=== PATIENT | male | born 1975 | race Caucasian/White ===

== ENCOUNTER 2016-07-05 02:11 | Emergency (ER) | payer MEDICARE, OTHER ==
[~2016-07-05] VITALS: Ht 167.6 cm; Wt 107.5 kg
[~2016-07-05 02:11] MED LIST: ALOE1CAP PO; GEODON; LITHIUM; PRED-219 PO; TRAZ-56 PO; [UNRECOGNIZED DRUG - CODE] SQ
--- OUTSIDE RECORDS SUMMARY | 2016-07-05 02:15 | XMS REPORT | Referral Summary ---
Author Author [facility] Organization [facility] Address Unknown Phone Unavailable Care Team Providers Care Nozzleman Name Role Phone Cait Burgess Primary Care Physician [phone] Encounter Date(s): 12/09/14 - 12/09/14 [facility] [address] [place], [place] [address] Discharge Diagnosis: Rheumatoid arthritis Discharge Diagnosis: Fatigue Discharge Diagnosis: High risk medication use Discharge Disposition: 01-Home or Self Care Attending Physician: Christen Sotomayor MD Admitting Physician: Christen Sotomayor MD Vital Signs Most recent to 1 oldest [Reference Range]: Temperature Oral 36.4 degC [35.8-37.3 degC] (12/09/14 3:40 PM) Peripheral Pulse 79 bpm Rate [60-100 bpm] (12/09/14 3:40 PM) Blood Pressure 117/70 mmHg [90-140/60-90 mmHg] (12/09/14 3:40 PM) Problem List Condition Effective Dates Status Health Status Informant Chronic bipolar Active disorder(Confirmed) Obesity(Confirmed) Active patient Rheumatoid Active arthritis(Confirmed) Allergies, Adverse Reactions, Alerts Substance Reaction Severity Status cephalexin Rash Mild Active inFLIXimab hives, headache, dyspnea Severe Active sulindac Hives Mild Active Medications fenofibrate 43 mg oral capsule 1 caps, Oral, Daily, 0 Refill(s) Start Date: 03/09/14 Status: Ordered Geodon 40 mg oral capsule 1 caps, Oral, Bedtime (once a day), 0 Refill(s) Start Date: 03/09/14 Status: Ordered Kineret 100 mg/0.67 mL subcutaneous solution 100 mg, SubCutaneous, Daily, # 90 syringes, 1 Refill(s), [place] [facility] [facility] [place] 100 mg SubCutaneous Daily Start Date: 12/09/14 Status: Ordered lisinopril 20 mg oral tablet 1 tabs, Oral, Daily, 0 Refill(s) Start Date: 03/09/14 Status: Ordered lithium carbonate 300 mg, Oral, Daily, 3 tabs daily, 0 Refill(s) Start Date: 03/09/14 Status: Ordered meloxicam 15 mg oral tablet 1 tabs, Oral, Daily, # 30 tabs, 0 Refill(s), Pharmacy: [facility], 1 tabs Oral Daily Start Date: 03/09/14 Status: Ordered Probiotic Formula 1 caps, Oral, BID, 0 Refill(s) Start Date: 03/09/14 Status: Ordered Tylenol Extra Strength 1,000 mg, Oral, q4hr, as needed for pain, 1-2 tabs, 0 Refill(s) Start Date: 03/09/14 Status: Ordered Tylenol PM 1 tabs, Oral, Bedtime (once a day), OTC, 0 Refill(s) Start Date: 12/09/14 Status: Ordered Results No data available for this section Immunizations No data available for this section Procedures Procedure Date Related Diagnosis Body Site Hernia repair 2012 Tonsillectomy Social History Social History Type Response Smoking Status Former smoker; Type: Cigarettes Assessment and Plan Extracted from: Title: Ambulatory Patient Education Author: Christen Sotomayor MD Date: Home Health Care Immunosuppression Immunosuppression is the use of medicine to lower your body's immune response. Your immune response is your body's natural reaction to defend against something new or unknown that enters your body, such as viruses and bacteria. WHY AM I RECEIVING IMMUNOSUPPRESSION? You may be receiving immunosuppression to hold back your body's immune response for one of the following reasons: As treatment for an autoimmune disorder. These disorders cause your body to use the immune response to attack itself. To prevent your body from rejecting a transplant of cells, tissues, or organs that you have received from a donor. When you receive a transplant from a donor, your immune system knows that something is new and unknown to your body. Sometimes this triggers an immune response to attack the transplant. To prevent inflammation caused by certain long-term (chronic) conditions such as asthma or chronic obstructive pulmonary disease (COPD). Often these types of chronic conditions are associated with severe immune responses. These responses can cause inflammation that can lead to life-threatening situations. Suppression of your body's immune system also affects your body's ability to defend itself and can lead to certain side effects. WHAT ARE THE SIDE EFFECTS OF IMMUNOSUPPRESSION? The major side effect of immunosuppression is an increased risk of infection. You should call your health care provider if you have the following signs or symptoms of an infection: A fever. Drainage or bad odor of drainage from your surgical scar if you had an organ transplant. Burning when you pass your urine. A cold or cough that will not go away. Body aches. Other side effects typically go away as your body adjusts to the medicine. These side effects can include: Nausea and vomiting. Loss of appetite. Increased hair growth. Shaky hands (hand tremor). Adjusting medicine dosages or treating the side effects will often decrease problems. WHY IS IT IMPORTANT FOR ME TO TAKE MY MEDICINE EXACTLY INSTRUCTED? In order for immunosuppression to work, your body needs to have just the right level of medicine all of the time. For this to happen, your health care provider will tell you exactly how much and exactly when you need to take your medicine. It is very important to follow your health care provider's instructions. Even missing a single dose can cause your condition to worsen. If you forget a dose of medicine, take it as soon as you remember and call your health care provider right away. However, if you miss a dose and it is time to take your next dose, do not take a double dose. WHAT CAN HELP ME DEVELOP A ROUTINE TO TAKE MY MEDICINE EXACTLY INSTRUCTED? Use a tool such as a pill organizer, a written chart from your health care provider, a notebook, a binder, or your own calendar to organize your daily medicine(s). Your tool should help you keep track of the: Name of the medicine and the dose. Days to take the medicine(s). Time of day to take the medicine(s). Set cues or reminders for taking your medicine(s), such as setting an alarm on a clock or cell phone. Review your medicine schedule with family members or friends so they can help you remember when to take your medicine(s) and how much to take. Document Released: 03/09/2014 Document Reviewed: 03/09/2014 [facility] Patient Information 2015 [email or web address] [facility]. This information is not intended to replace advice given to you by your health care provider. Make sure you discuss any questions you have with your health care provider. No follow up information was provided.
--- OUTSIDE RECORDS SUMMARY | 2016-07-05 02:15 | XMS REPORT | Continuity of Care Document ---
Author Author [facility] Organization [facility] Address Unknown Phone Unavailable Allergies Active Description Code Type Severity Reaction Onset Reported/Identified Relationship to Patient Clinical Status Yes cephalexin 2716 Drug Allergy N/A N/A Confirmed or Verified Yes infliximab 7640 Drug Allergy N/A N/A Confirmed or Verified Yes sulindac 2386 Drug Allergy N/A N/A Confirmed or Verified Yes tofacitinib 41214 Drug Allergy N/A N/A Confirmed or Verified Yes Actemra NKMA Medium rash, dyspnea Yes Orencia NKMA Medium rash, itching Yes sulindac NKMA Moderate Hives 07/14/2013 Yes Clinoril NKMA N/A [id number] 03/09/2014 Yes inFLIXimab NKMA N/A hives, headache, dyspnea 03/09/2014 Yes cephalexin NKMA Mild Rash 12/09/2014 Yes inFLIXimab NKMA Severe hives, headache, dyspnea 12/09/2014 Yes sulindac NKMA Mild Hives 12/09/2014 Yes Xeljanz NKMA N/A persistent N/V 03/21/2015 Yes No Allergy Information Available 143 Drug Allergy N/A N/A 04/11/2015 Erroneous Yes No Known Food Allergy NO KNOWN FOOD ALLERG NF N/A N/A 04/11/2015 Confirmed or Verified Yes Remicade 00976 Drug Allergy N/A N/A 04/11/2015 Yes Remicade 02834 Drug Allergy Severe Rash 10/24/2015 Yes Clinoril 9709 Drug Allergy N/A Hives 10/24/2015 Yes Keflex 6608 Drug Allergy N/A bruising 10/24/2015 Yes tofacitinib 75053 Drug Allergy N/A Rash 10/24/2015 Medications Problems Date Dx Coded Attending Type Code Diagnosis Diagnosed By 12/30/2012 LEAH RATLIFF, CHERI Rivas 714.30 JUV RHEUM ARTHRITIS NOS 10/05/2014 LEAH RATLIFF, CHERI Rivas 714.30 JUV RHEUM ARTHRITIS NOS 04/06/2015 CHERI LYNN MD M08.00 [facility] juvenile rheumatoid arthritis of unspecified site 04/15/2015 CHERI LYNN MD 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, [facility] site 05/13/2015 CHERI LYNN MD 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, [facility] 10/21/2015 CHERI LYNN MD E78.4 Other hyperlipidemia 10/21/2015 CHERI LYNN MD F31.9 Bipolar disorder, unspecified 10/21/2015 CHERI LYNN MD 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, [facility] 10/28/2015 CHERI LYNN MD 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, [facility] site Procedures Code [place] [address] METABOLIC PANEL TOTAL CA CHERI LYNN MD 12/30/2012 32470 ASSAY THYROID STIM HORMONE CHERI LYNN MD 12/30/2012 65198 RBC SED RATE, AUTOMATED CHERI LYNN MD 10/05/2014 21781 RBC SED RATE, AUTOMATED CHERI LYNN MD 04/06/2015 98567 THER/PROPH/DIAG INJ, IV PUSH CHERI LYNN MD 04/11/2015 J7050 NS SOLUTION 250 CC INFUSION CHERI LYNN MD 04/11/2015 30540 THER/PROPH/DIAG IV INF, LORETTAIT CHERI LYNN MD 04/12/2015 76373 THER/PROPH/DIAG INJ, IV PUSH CHERI LYNN MD 04/12/2015 J7050 NS SOLUTION 250 CC INFUSION CHERI LYNN MD 04/12/2015 83199 THER/PROPH/DIAG IV INF, INIT CHERI LYNN MD 04/13/2015 87767 THER/PROPH/DIAG INJ, IV PUSH CHERI LYNN MD 04/13/2015 J7050 NS SOLUTION 250 CC INFUSION CHERI LYNN MD 04/13/2015 44692 THER/PROPH/DIAG IV INF, INIT CHERI LYNN MD 04/14/2015 J7050 NS SOLUTION 250 CC INFUSION CHERI LYNN MD 04/14/2015 97821 THER/PROPH/DIAG IV INF, INSPENCER LYNN MD , CHERI R 04/15/2015 07728 THER/PROPH/DIAG INJ, IV PUSH LEAH RATLIFF , CHERI R 04/15/2015 J7050 NS SOLUTION 250 CC INFUSION LEAH RATLIFF, CHERI R 04/15/2015 64405 COMPREHEN METABOLIC PANEL LEAH RATLIFF, CHERI R 05/13/2015 18958 COMPLETE CBC, AUTOMATED LEAH RATLIFF, CHERI R 05/13/2015 22449 RBC SED RATE, AUTOMATED LEAH RATLIFF, CHERI R 10/21/2015 J7050 NS SOLUTION 250 CC INFUSION LEAH RATLIFF, CHERI R 10/24/2015 31869 THER/PROPH/DIAG IV INF, INSPENCER LYNN MD , CHERI R 10/25/2015 J7050 NS SOLUTION 250 CC INFUSION LEAH RATLIFF, CHERI R 10/25/2015 77631 THER/PROPH/DIAG IV INF, INSPENCER LYNN MD , CHERI R 10/26/2015 J7050 NS SOLUTION 250 CC INFUSION LEAH RATLIFF, CHERI R 10/26/2015 90053 THER/PROPH/DIAG IV INF, INSPENCER LYNN MD , CHERI R 10/27/2015 60955 THER/PROPH/DIAG INJ, IV PUSH LEAH RATLIFF , HCERI R 10/27/2015 J7050 NS SOLUTION 250 CC INFUSION LEAH RATLIFF, CHERI R 10/27/2015 95944 THER/PROPH/DIAG IV INF, MONY LYNN MD , CHERI R 10/28/2015 J7050 NS SOLUTION 250 CC INFUSION LEAH RATLIFF, CHERI R 10/28/2015 Results Test Result Range Basic Metabolic Panel - 12/30/12 10:39 Sodium 143 MMOLL 134-145 Potassium 4.6 MMOLL 3.6-5.0 Chloride 103 MMOLL 98-107 CO2 29 MMOLL 22-30 Glucose 93 MG/DL 75-110 BUN 13 MG/DL 9-20 Creatinine .8 MG/DL 0.8-1.7 Calcium 9.7 MG/DL 8.4-10.2 TSH - 12/30/12 10:39 TSH 0.51 UIUML 0.50-6.00 Sed Rate (ESR) - 04/06/15 15:12 Sed Rate (ESR) 5 MM/hr 0-15 Comprehensive Metabolic Panel - 05/13/15 15:38 Sodium 137 MMOLL 134-145 Potassium 4.8 MMOLL 3.6-5.0 Chloride 101 MMOLL 98-107 CO2 25 MMOLL 22-30 Glucose 114 MG/DL 75-110 BUN 21 MG/DL 9-20 Creatinine 1.27 MG/DL 0.8-1.7 Calcium 9.7 MG/DL 8.4-10.2 T Bili .4 MG/DL 0.2-1.3 T. Protein 7.1 G/DL 6.3-8.2 A/G Ratio 1.2 RATIO Albumin 3.9 G/DL 3.5-5.0 Alk Phos 44 U/L 38-126 ALT 38 U/L 11-66 AST 25 U/L 14-36 CBC - 05/13/15 15:38 Eos # 0.21 x10^3 0-0.5 Eos % 2.4 % 0-4 HCT 39.7 % 42.0-52.0 HGB 12.9 G/DL 14.0-18.0 Lymph # 1.90 x10^3 1.0-4.0 Lymph % 21.7 % 20-50 MCH 27.3 PG 27.0-31.0 MCHC 32.5 G/DL 32.0-36.0 MCV 83.9 FL 80-94 [place] # 0.95 x10^3 0.0-0.8 [place] % 10.9 % 1.0-9.0 MPV 8.7 FL 6.0-10.0 Platelet 331 x10^3 150-400 RBC 4.73 x10^3 4.60-6.20 RDW 14.6 % 12-15 WBC 8.75 x10^3 5.8-10.8 Baso # 0.07 x10^3 0-0.2 Baso % 0.8 % 0-2 Neut % 64.2 % 50-70 Neut # 5.62 x10^3 3.0-7.0 Sed Rate (ESR) - 10/21/15 12:48 Sed Rate (ESR) 5 MM/hr 0-15 Quantiferon TB Test - 06/07/16 17:12 Quantiferon TB Test Negative NA Negative Encounters ACCT No. Visit Date/Time Discharge Status Pt. Type Provider Facility Loc./Unit Complaint [id number] 03/26/2013 13:22:00 03/26/2013 23 :59:59 CLS Outpatient
--- OUTSIDE RECORDS SUMMARY | 2016-07-05 02:15 | XMS REPORT | Referral Summary ---
Author Author [facility] Organization [facility] Address Unknown Phone Unavailable Care Team Providers Care Foster Parent Name Role Phone Cait Burgess Primary Care Physician [phone] Encounter [facility] Date(s): 03/20/16 - 03/20/16 [facility] [address] [place], [place] [address] Discharge Disposition: 01-Home or Self Care Attending Physician: Christen Sotomayor MD Admitting Physician: Christen Sotomayor MD Referring Physician: Christen Sotomayor MD Vital Signs No data available for this section Problem List Condition Effective Dates Status Health Status Informant Adult Still's Active disease(Confirmed) Chronic bipolar Active disorder(Confirmed) High risk medication Active use(Confirmed) NSAID long-term Active use(Confirmed) Obesity(Confirmed) Active patient Rheumatoid Active arthritis(Confirmed) Allergies, Adverse Reactions, Alerts Substance Reaction Severity Status cephalexin Rash Mild Active inFLIXimab hives, headache, dyspnea Severe Active sulindac Hives Mild Active Xeljanz persistent N/V Active Medications abatacept 250 mg intravenous injection See Instructions, ORENCIA 250MG/VIAL IV WEIGHT BASED DOSE AT WEEKS 0,2,4 THEN EVERY 4 WEEKS THEREAFTER., # 1 vials, 0 Refill(s), Indication: M05.79, other reason (Rx) Start Date: 12/14/15 Status: Ordered fenofibrate 43 mg oral capsule 1 caps, Oral, Daily, 0 Refill(s) Start Date: 03/09/14 Status: Ordered Geodon 40 mg oral capsule 1 caps, Oral, Bedtime (once a day), 0 Refill(s) Start Date: 03/09/14 Status: Ordered lisinopril 20 mg oral tablet 1 tabs, Oral, Daily, 0 Refill(s) Start Date: 03/09/14 Status: Ordered lithium carbonate 300 mg, Oral, Daily, 3 tabs daily, 0 Refill(s) Start Date: 03/09/14 Status: Ordered minocycline 100 mg oral tablet 100 mg 1 tabs, Oral, q12hr, Rx by PCP, # 1 tabs, 0 Refill(s), other reason (Rx) Start Date: 06/09/15 Status: Ordered Motrin IB 200 mg oral tablet 800 mg 4 tabs, Oral, Bedtime (once a day), Liquigels OTC, # 100 tabs, 0 Refill(s ), other reason (Rx) Start Date: 12/13/15 Status: Ordered Orencia 250 mg intravenous injection 1,000 mg, IV, q4wk, # 4 Each, 11 Refill(s), Indication: M05.79 Start Date: 02/23/16 Status: Ordered Probiotic Formula 1 caps, Oral, BID, 0 Refill(s) Start Date: 03/09/14 Status: Ordered Tylenol Extra Strength 1,000 mg, Oral, q4hr, as needed for pain, 1-2 tabs, 0 Refill(s) Start Date: 03/09/14 Status: Ordered Tylenol PM 1 tabs, Oral, Bedtime (once a day), OTC, 0 Refill(s) Start Date: 12/09/14 Status: Ordered Results No data available for this section Immunizations Given and Recorded Vaccine Date Status Refusal Reason influenza virus vaccine, inactivated1 01/04/15 Recorded pneumococcal 13-valent conjugate vaccine2 01/04/15 Recorded pneumococcal 23-polyvalent vaccine3 01/24/11 Recorded 1Result Comment: [04/05/2015] RECEIVED AT [facility] IN [facility] 2Result Comment: [04/05/2015] RECEIVED AT [facility] IN [facility] 3Result Comment: [04/05/2015] RECEIVED AT [facility] IN [facility] IN [place] Procedures Procedure Date Related Diagnosis Body Site Hernia repair 2012 Tonsillectomy Social History Social History Type Response Smoking Status Former smoker; Type: Cigarettes Assessment and Plan No data available for this section
--- OUTSIDE RECORDS SUMMARY | 2016-07-05 02:15 | XMS REPORT | Referral Summary ---
Author Author [facility] Organization [facility] Address Unknown Phone Unavailable Care Team Providers Care Company Marker Name Role Phone Cait Burgess Primary Care Physician [phone] Encounter [facility] [id number] Date(s): 12/09/14 - 12/09/14 [facility] [address] [place], [place] [address] Discharge Diagnosis: Rheumatoid arthritis Discharge Diagnosis: [...] Active disorder(Confirmed) High risk medication Active use(Confirmed) Obesity(Confirmed) Active patient Allergies, Adverse Reactions, Alerts Substance Reaction Severity Status cephalexin Rash Mild Active inFLIXimab hives, headache, dyspnea Severe Active sulindac Hives Mild Active Xeljanz persistent N/V Active Medications anakinra 100 mg/0.67 mL subcutaneous solution 100 mg, SubCutaneous, Daily, # 56 Each, 2 Refill(s), 100 mg SubCutaneous Daily Start Date: 06/15/15 Status: Ordered fenofibrate 43 mg oral capsule [...] Ordered Motrin IB 200 mg oral tablet 400 mg 2 tabs, Oral, q4hr, as needed for pain, # 120 tabs, 0 Refill(s) Start Date: 02/07/15 Status: Ordered Probiotic Formula 1 caps, Oral, BID, 0 Refill(s) Start Date: 03/09/14 Status: Ordered Tylenol Extra Strength 1,000 mg, Oral, q4hr, as needed for pain, 1-2 tabs, 0 Refill(s) Start Date: 03/09/14 Status: Ordered Tylenol PM 1 tabs, Oral, Bedtime (once a day), OTC, 0 Refill(s) Start Date: 12/09/14 Status: Ordered Results No data available for this section Immunizations Vaccine Date Refusal Reason influenza virus vaccine, inactivated1 01/04/15 pneumococcal 13-valent conjugate vaccine2 01/04/15 pneumococcal 23-polyvalent vaccine3 01/24/11 1Result Comment: [04/05/2015] RECEIVED AT [facility] 2Result Comment: [04/05/2015] RECEIVED AT [facility] 3Result Comment: [04/05/2015] RECEIVED AT [facility] Procedures Procedure Date Related Diagnosis Body Site [...] take. Document Released: 03/09/2014 Document Reviewed: 03/09/2014 [facility] Patient Information 2015 [employer]. This information is not intended to replace advice given to you by your health care provider. Make sure you discuss any questions you have with your health care provider. No follow up information was provided. Extracted from: Title: Office Visit Note Author: Christen Sotomayor MD Date: 12/09/14 Assessment/Plan 1.Rheumatoid arthritis 2.Fatigue 3.High risk medication use
--- OUTSIDE RECORDS SUMMARY | 2016-07-05 02:15 | XMS REPORT | Referral Summary ---
Author Author [facility] Organization [facility] Address Unknown Phone Unavailable Care Team Providers Care Vice President Of Instruction Name Role Phone Cait Burgess Primary Care Physician [phone] Encounter Date(s): 03/21/15 - 03/21/15 [facility] [address] [place], [place] [address] Discharge Diagnosis: High risk medication use Discharge Diagnosis: Rheumatoid arthritis Discharge Diagnosis: Adult Still's disease Discharge Disposition: 01-Home or Self Care Attending Physician: Christen Sotomayor MD Admitting Physician: Christen Sotomayor MD Vital Signs Most recent to 1 oldest [Reference Range]: Temperature Oral 36.5 degC [35.8-37.3 degC] (03/21/15 1:12 PM) Peripheral Pulse 88 bpm Rate [60-100 bpm] (03/21/15 1:12 PM) Blood Pressure 113/65 mmHg [90-140/60-90 mmHg] (03/21/15 1:12 PM) Problem List Condition Effective Dates Status Health Status Informant Adult Still's Active disease(Confirmed) Chronic bipolar Active disorder(Confirmed) High risk medication Active use(Confirmed) Obesity(Confirmed) Active patient Rheumatoid Active arthritis(Confirmed) Allergies, Adverse Reactions, Alerts Substance Reaction Severity Status cephalexin Rash Mild Active inFLIXimab hives, headache, dyspnea Severe Active sulindac Hives Mild Active Xeljanz persistent N/V Active Medications anakinra 100 mg/0.67 mL subcutaneous solution 100 mg, SubCutaneous, Daily, # 56 Each, 2 Refill(s) Start Date: 03/21/15 Status: Ordered fenofibrate 43 mg oral capsule [...] 0 Refill(s) Start Date: 03/09/14 Status: Ordered Motrin IB 200 mg oral [...] Cigarettes Assessment and Plan Extracted from: Title: Office Visit Note Author: Christen Sotomayor MD Date: 03/21/15 Assessment/Plan 1.Adult Still's disease 2.Rheumatoid arthritis 3.High risk medication use Orders: anakinra, 100 mg, SubCutaneous, Daily, # 56 Each, 2 Refill(s) Addendum A total of 30 minutes is spent with this patient who is somewhat difficult due to by his bipolar disorder and medications. He discussed risks and Sotomayor, benefits of both Orencia and Actemra and he is given handouts on these. I am also Christen Jain skeptical as to treatment as well as insurance reimbursement for the MD on clindamycin therapy for the Still's Disease. This was also discussed with him. March 21, 2015 22:12:17 DIRECTOR OF PUBLIC WORKS
--- OUTSIDE RECORDS SUMMARY | 2016-07-05 02:15 | XMS REPORT ---
Author Author [facility]. Organization [facility] Address [address] [place] [address] Phone [phone] Summary purpose CCDA Sent to [facility] Chief Complaint and Reason for Visit No authorized Reason for Visit (Admitting Diagnosis) is available for this visit. Problem list No authorized problems tracked for continuity of care are available for this visit. Encounters No authorized problems tracked for encounter diagnoses are available for this visit. Medications No medications recorded for this patient visit Allergies, adverse reactions, alerts Allergen Category Ingredient Status Reaction Severity Onset Remicade Drug Remicade Active Rash Severe Adult Remicade Drug infliximab Active Rash Severe Adult Keflex Drug Keflex Active bruising Adult Keflex Drug cephalexin Active bruising Adult tofacitinib Drug tofacitinib Active Rash Adult No Known Food Allergy No Known Food Allergy No Known Food Allergy Active Clinoril Drug Clinoril Active Hives Adolescence Clinoril Drug sulindac Active Hives Adolescence Immunizations No immunizations recorded for this patient visit Relevant diagnostic tests and/or laboratory data No authorized results are available for this patient visit History of procedures No procedures recorded for this patient visit. Functional status No functional or cognitive status observations are available for this visit. Vital signs Type Value Date Respirations 18 :55 Pulse 60 :55 O2 Saturation 96% :55 Systolic Blood Press 121mm/HG :55 Diastolic Blood Pres 77mm/HG :55 Temperature (Fahr) 98.2Degrees :00 Social history No Social History or smoking status observations were recorded for this visit. ( Unknown if ever smoked.) Treatment Plan No treatment plan text is available for this visit. Hospital discharge instructions No discharge instruction text is available for this visit.
--- OUTSIDE RECORDS SUMMARY | 2016-07-05 02:15 | XMS REPORT | Referral Summary ---
Author Author [facility] Organization [facility] Address Unknown Phone Unavailable Care Team Providers Care Police Guard Name Role Phone Cait Burgess Primary Care Physician [phone] Encounter [facility] Date(s): 03/20/16 - 03/20/16 [facility] [address] [place], [place] [address] Discharge Disposition: 01-Home or Self Care Attending Physician: Christen Sotomayor MD Admitting Physician: Christen Sotomayor MD Vital Signs No [...] 01/24/11 Recorded 1Result Comment: [04/05/2015] RECEIVED AT [facility] IN [facility] 2Result Comment: [04/05/2015] RECEIVED AT [facility] IN [facility] 3Result Comment: [04/05/2015] RECEIVED AT [facility] IN [facility] Procedures Procedure Date Related Diagnosis Body Site Hernia repair 2012 Tonsillectomy Social History Social History Type Response Smoking Status Former smoker; Type: Cigarettes Assessment and Plan No data available for this section
--- OUTSIDE RECORDS SUMMARY | 2016-07-05 02:16 | XMS REPORT | Referral Summary ---
Author Author [facility] Organization [facility] Address Unknown Phone Unavailable Care Team Providers Care Ballet Professor Name Role Phone Cait Burgess Primary Care Physician [phone] Encounter [facility] [id number] Date(s): 06/09/15 - 06/09/15 [facility] [address] [place], [place] [address] Discharge Diagnosis: High risk medication use Discharge Diagnosis: Adult Still's disease Discharge Diagnosis: Chronic bipolar disorder Discharge Disposition: 01-Home or Self Care Attending Physician: Christen Sotomayor MD Admitting Physician: Christen Sotomayor MD Vital Signs Most recent to 1 oldest [Reference Range]: Temperature Oral 36.2 degC [35.8-37.3 degC] (06/09/15 4:24 PM) Peripheral Pulse 75 bpm Rate [60-100 bpm] (06/09/15 4:24 PM) Blood Pressure 120/74 mmHg [90-140/60-90 mmHg] (06/09/15 4:24 PM) Problem List Condition Effective Dates Status [...] vaccine3 01/24/11 1Result Comment: [04/05/2015] RECEIVED AT [facility] 2Result Comment: [04/05/2015] RECEIVED AT [facility] 3Result Comment: [04/05/2015] RECEIVED AT [facility] Procedures Procedure Date Related Diagnosis Body Site Hernia repair 2012 Tonsillectomy Social History Social History Type Response Smoking Status Former smoker; Type: Cigarettes Assessment and Plan No data available for this section
--- OUTSIDE RECORDS SUMMARY | 2016-07-05 02:16 | XMS REPORT | Referral Summary ---
Author Author [facility] Organization [facility] Address Unknown Phone Unavailable Care Team Providers Care Warning Analyst Name Role Phone Cait Burgess Primary Care Physician [phone] Encounter [facility] [id number] Date(s): 02/07/15 - 02/07/15 [facility] [address] [place], [place] [address] Discharge Diagnosis: High risk medication use Discharge Diagnosis: Chronic bipolar disorder Discharge Diagnosis: Adult Still's disease Discharge Disposition: 01-Home or Self Care Attending Physician: Christen Sotomayor MD Admitting Physician: Christen Sotomayor MD Vital Signs Most recent to 1 oldest [Reference Range]: Temperature Oral 36.6 degC [35.8-37.3 degC] (02/07/15 3:02 PM) Peripheral Pulse 79 bpm Rate [60-100 bpm] (02/07/15 3:02 PM) Blood Pressure 123/76 mmHg [90-140/60-90 mmHg] (02/07/15 3:02 PM) Problem List Condition Effective Dates Status [...] 0 Refill(s) Start Date: 12/09/14 Status: Ordered Xeljanz 5 mg oral tablet 5 mg 1 tabs, Oral, BID, # 60 tabs, 0 Refill(s), 1 tabs Oral BID Start Date: 02/07/15 Status: Ordered Results Chemistry Most recent to 1 oldest [Reference Range]: Hep A IgM Negative (02/07/15 4:13 PM) Hep Bs Ag Negative (02/07/15 4:13 PM) Hep C Ab Negative (02/07/15 4:13 PM) Hep B Core IgM Negative (02/07/15 4:13 PM) Immunizations No data available for this section Procedures Procedure Date Related Diagnosis Body Site Hernia repair 2012 Tonsillectomy Social History Social History Type Response Smoking Status Former smoker; Type: Cigarettes Assessment and Plan No data available for this section
--- OUTSIDE RECORDS SUMMARY | 2016-07-05 02:16 | XMS REPORT ---
Author Author [facility]. Organization [facility] Address [address] [place] [address] Phone [phone] Summary purpose CCDA Sent to [facility] Chief Complaint and Reason for Visit No [...] visit Relevant diagnostic tests and/or laboratory data RESULTS [facility] [id number]:06:00 Result Normal Range Units Sed Rate (ESR) 5 0-15 MM/hr. History of procedures Procedure Code Code Type Description Date Performed Performing Physician 42727 CPT-4 RBC SED RATE, AUTOMATED 10-21-2015 CHERI LYNN Functional status No functional or cognitive status observations are available for this visit. Vital signs No authorized vital signs are available for this visit. Social history No Social History or smoking status observations were recorded for this visit. ( Unknown if ever smoked.) Treatment Plan No treatment plan text is available for this visit. Hospital discharge instructions No discharge instruction text is available for this visit.
--- OUTSIDE RECORDS SUMMARY | 2016-07-05 02:16 | XMS REPORT ---
Author Author [facility] Organization [facility] Address [address] [place] [address] Phone [phone] Summary purpose CCDA Sent to [facility] Chief Complaint and Reason for Visit No [...] Food Allergy No Known Food Allergy Active Immunizations No immunizations recorded for this patient visit Relevant diagnostic tests and/or laboratory data RESULTS CBC [id number]:20:00 Result Normal Range Units WBC 8.75 5.8-10.8 x103/mm3 Neutrophil % 64.2 50-70 % Lymph % 21.7 20-50 % Piute % H 10.9 1.0-9.0 % Eosinophil % 2.4 0-4 % Basophil % 0.8 0-2 % Neutrophil # 5.62 3.0-7.0 x103/mm3 Lymph # 1.90 1.0-4.0 x103/mm3 Piute # H 0.95 0.0-0.8 x103/mm3 Eosinophil # 0.21 0-0.5 x103/mm3 Basophil # 0.07 0-0.2 x103/mm3 RBC 4.73 4.60-6.20 x103/mm3 HGB L 12.9 14.0-18.0 g/dl HCT L 39.7 42.0-52.0 % MCV 83.9 80-94 FL MCH 27.3 27.0-31.0 pg MCHC 32.5 32.0-36.0 g/dl RDW 14.6 12-15 % Platelet 331 150-400 x103/mm3 MPV 8.7 6.0-10.0 FL Chemistry Group [id number]:20:00 Result Normal Range Units Sodium 137 134-145 mmol/L Potassium 4.8 3.6-5.0 mmol/L Chloride 101 98-107 mmol/L CO2 25 22-30 mmol/L Glucose H 114 75-110 mg/dl BUN H 21 9-20 mg/dl Creatinine 1.27 0.8-1.7 mg/dl Total Protein 7.1 6.3-8.2 g/dl Albumin 3.9 3.5-5.0 g/dl Calcium 9.7 8.4-10.2 mg/dl Alk Phos 44 38-126 U/L AST 25 14-36 U/L ALT 38 11-66 U/L T Bili .4 0.2-1.3 mg/dl A/G Ratio 1.2 Ratio History of procedures Procedure Code Code Type Description Date Performed Performing Physician 86001 CPT-4 COMPREHEN METABOLIC PANEL 05-13-2015 CHERI LYNN 54349 CPT-4 COMPLETE CBC, AUTOMATED 05-13-2015 CHERI LYNN Functional status No functional or [...]
--- OUTSIDE RECORDS SUMMARY | 2016-07-05 02:16 | XMS REPORT | Referral Summary ---
Author Author [facility] Organization [facility] Address Unknown Phone Unavailable Care Team Providers Care Fulfillment Specialist Name Role Phone Cait Burgess Primary Care Physician [phone] Encounter Date(s): 12/09/14 - 12/09/14 [facility] [address] [place], [place] [address] Discharge Diagnosis: Rheumatoid arthritis Discharge Diagnosis: Fatigue [...] Daily, # 30 tabs, 0 Refill(s), Pharmacy: [facility], 1 tabs Oral Daily Start Date: [...] take. Document Released: 03/09/2014 Document Reviewed: 03/09/[address] [facility] Patient Information 2015 [employer] [facility]. This information is not intended to replace advice given to you by your health care provider. Make sure you discuss any questions you have with your health care provider. No follow up information was provided.
--- OUTSIDE RECORDS SUMMARY | 2016-07-05 02:16 | XMS REPORT | Continuity of Care Document ---
Author Author Christen Sotomayor MD [facility] Address [address] [place] [address] Phone Care Team Providers Care Sales Promotion Officer Name Role Phone Jazmin Burgess PP Unavailable Payers Payer name Insurance type Covered democrat ID Authorization(s) Unknown Problems Condition Effective Dates (start - stop) Clinical Status Still's disease of adult - *Fair Control Hx of bipolar disorder - *Controlled Family History Family Member Diagnosis Age At Onset Status Maternal grandfather (Alive) Glaucoma, CHF Yes Father (Unknown) CAD Yes Paternal grandfather (Unknown) COPD Yes Maternal grandmother (Unknown) Cancer - breast Yes Paternal grandfather (Unknown) CAD Yes 2 nephews (Unknown) Hemophilia Yes Maternal grandmother (Unknown) Alive and well (Unknown) Maternal grandmother (Unknown) Osteoporosis Yes Sister (Unknown) Hemophilia trait Yes Maternal grandmother (Unknown) Scoliosis Yes Social History Social History Element Description Quantity Unknown Allergies, Adverse Reactions, Alerts Substance Reaction Severity Status INFLIXIMAB Unknown CEPHALEXIN MONOHYDRATE Rash mild SULINDAC Hives mild to moderate Medications Medication Instructions Dosage Effective Dates (start - stop) Status Geodon 40 mg capsule take 1 capsule (40MG) by oral route every day with food 40 MG - Active lithium carbonate 300 mg tablet take 1 tablet (300MG) by oral route 3 times every day 300 MG - Active Sleep Aid (diphenhydramine) 25 mg capsule TAKE 1 AT BEDTIME - Active Kineret 100 mg/0.67 mL subcutaneous syringe inject 1 milliliter ( [id number]) by subcutaneous route every day 149.2537 MG - Active Immunizations Vaccine Date Status Comments Unknown Results Test Name Date and Time Measure Units Reference Range Abnormal Flag Comments Unknown Vital Signs Date / Time: Height Weight Pulse Rate Blood Pressure Temperature /13:58:00 65.75 in 202.00 lbs 96 /min 128/86 mm[Hg] 97.6 F Procedures Procedure Date Unknown Encounters Encounter Location Date Patient Visit [facility] Directives Directive Effective Date Unknown
--- OUTSIDE RECORDS SUMMARY | 2016-07-05 02:16 | XMS REPORT | Referral Summary ---
Author Author [facility] Organization [facility] Address Unknown Phone Unavailable Care Team Providers Care Multimedia Designer Name Role Phone Cait Burgess Primary Care Physician [phone] Encounter [facility] Date(s): 04/23/16 - 04/23/16 [facility] [address] [place], [place] [address] Discharge Disposition: 01-Home or Self [...] Mild Active Xeljanz persistent N/V Active Medications Actemra 20 mg/mL intravenous solution 4 mg/kg, IV, q4wk, # 1 vials, 11 Refill(s), Indication: M05.79 Start Date: 04/13/16 Status: Ordered fenofibrate 43 mg oral capsule [...] reason (Rx) Start Date: 12/13/15 Status: Ordered Probiotic Formula 1 caps, Oral, [...] 01/24/11 Recorded 1Result Comment: [04/05/2015] RECEIVED AT [facility] 2Result Comment: [04/05/2015] RECEIVED AT [facility] IN [facility] 3Result Comment: [04/05/2015] RECEIVED AT [facility] IN [facility] Procedures Procedure Date Related Diagnosis Body Site Hernia repair 2012 Tonsillectomy Social History Social History Type Response Smoking Status Former smoker; Type: Cigarettes Assessment and Plan No data available for this section
--- OUTSIDE RECORDS SUMMARY | 2016-07-05 02:16 | XMS REPORT | Referral Summary ---
Author Author [facility] Organization [facility] Address Unknown Phone Unavailable Care Team Providers Care Vp Cardiovascular Name Role Phone Cait Burgess Primary Care Physician [phone] Encounter [facility] Date(s): 04/03/16 - 04/03/16 [facility] [address] [place], [place] [address] Discharge Disposition: 01-Home or Self Care [...] 01/24/11 Recorded 1Result Comment: [04/05/2015] RECEIVED AT [facility] 2Result Comment: [04/05/2015] RECEIVED AT [facility] 3Result Comment: [04/05/2015] RECEIVED AT [facility] [place] Procedures Procedure Date Related Diagnosis Body Site Hernia repair 2012 Tonsillectomy Social History Social History Type Response Smoking Status Former smoker; Type: Cigarettes Assessment and Plan No data available for this section
--- OUTSIDE RECORDS SUMMARY | 2016-07-05 02:16 | XMS REPORT | Referral Summary ---
Author Author [facility] Organization [facility] Address Unknown Phone Unavailable Care Team Providers Care Research Program Internship Name Role Phone Cait Burgess Primary Care Physician [phone] Encounter [facility] [id number] Date(s): 05/08/16 - 05/08/16 [facility] [address] [place], [place] [address] Discharge Diagnosis: Rash Discharge Diagnosis: Rheumatoid arthritis Discharge Diagnosis: Diarrhea Discharge Diagnosis: High risk medication use Discharge Diagnosis: NSAID long-term use Discharge Disposition: 01-Home or Self Care Attending Physician: Christen Sotomayor MD Admitting Physician: Christen Sotomayor MD Vital Signs Most recent to 1 oldest [Reference Range]: Temperature Oral 36.6 degC [35.8-37.3 degC] (05/08/16 1:57 PM) Peripheral Pulse 92 bpm Rate [60-100 bpm] (05/08/16 1:57 PM) Blood Pressure 112/74 mmHg [90-140/60-90 mmHg] (05/08/16 1:57 PM) Problem List Condition Effective Dates Status Health Status Informant Adult Still's Active disease(Confirmed) Chronic bipolar Active disorder(Confirmed) Rash(Confirmed) Active High risk medication Active use(Confirmed) NSAID long-term Active use(Confirmed) Obesity(Confirmed) Active patient Rheumatoid Active arthritis(Confirmed) Allergies, Adverse Reactions, Alerts Substance Reaction Severity Status Actemra rash, dyspnea Medium Active cephalexin Rash Mild Active inFLIXimab hives, headache, dyspnea Severe Active sulindac Hives Mild Active Xeljanz persistent N/V Active Medications fenofibrate 43 mg oral capsule [...] Refill(s) Start Date: 12/09/14 Status: Ordered Results Hematology Most recent to 1 oldest [Reference Range]: WBC [4.8-10.8 5.4 10*3/uL 10*3/uL] (05/08/16 3:02 PM) RBC [4.60-6.20] 4.82 (05/08/16 3:02 PM) Hgb [14.0-18.0 12.4 gm/dL gm/dL] *LOW* (05/08/16 3:02 PM) Hct [42.0-52.0 %] 39.2 % *LOW* (05/08/16 3:02 PM) MCV [82.0-99.0 fL] 81.3 fL *LOW* (05/08/16 3:02 PM) MCH [27.0-32.0 pg] 25.7 pg *LOW* (05/08/16 3:02 PM) MCHC [32.0-36.0 31.6 gm/dL gm/dL] *LOW* (2/21/17 3:02 PM) RDW [11.5-14.5 %] 15.5 % *HI* (05/08/16 3:02 PM) Platelet [150-400 261 10*3/uL 10*3/uL] (05/08/16 3:02 PM) MPV [8.8-14.8 fL] 8.9 fL (05/08/16 3:02 PM) Immature 0.4 % Granulocytes (05/08/16 3:02 PM) [0.0-1.0 %] Neutrophils [51-75 55 % %] (05/08/16 3:02 PM) Lymphocytes [20-46 23 % %] (05/08/16 3:02 PM) Monocytes [4-11 %] 18 % *HI* (05/08/16 3:02 PM) Eosinophils [0-4 %] 3 % (05/08/16 3:02 PM) Basophils [0-2 %] 1 % (05/08/16 3:02 PM) Neutro Absolute 3.02 [1.90-7.00] (05/08/16 3:02 PM) Lymph Absolute 1.24 [0.80-3.30] (05/08/16 3:02 PM) [place] Absolute 0.98 [0.30-1.00] (05/08/16 3:02 PM) Eos Absolute 0.15 [0.00-0.50] (05/08/16 3:02 PM) Baso Absolute 0.04 [0.00-0.20] (05/08/16 3:02 PM) Chemistry Most recent to 1 oldest [Reference Range]: Sodium Lvl [135-144 137 mEq/L mEq/L] (05/08/16 3:02 PM) Potassium Lvl 4.8 mEq/L [3.5-5.2 mEq/L] (05/08/16 3:02 PM) Chloride [99-111 107 mEq/L mEq/L] (05/08/16 3:02 PM) CO2 [23-31 mEq/L] 25 mEq/L (05/08/16 3:02 PM) AGAP [3-20] 5 (05/08/16 3:02 PM) BUN [9-21 mg/dL] 20 mg/dL (05/08/16 3:02 PM) Glucose Lvl [70-99 101 mg/dL mg/dL] *HI* (05/08/16 3:02 PM) Creatinine Lvl 0.98 mg/dL [0.72-1.25 mg/dL] (05/08/16 3:02 PM) eGFR [>60 mL/min] >60 mL/min 1 (05/08/16 3:02 PM) Calcium Lvl 9.6 mg/dL 2 [8.4-10.2 mg/dL] (05/08/16 3:02 PM) Albumin Lvl [3.5-5.0 4.1 gm/dL gm/dL] (05/08/16 3:02 PM) Total Protein 6.8 gm/dL [6.1-7.7 gm/dL] (05/08/16 3:02 PM) Globulin [1.8-4.0 2.7 gm/dL gm/dL] (05/08/16 3:02 PM) ALT [0-55 U/L] 53 U/L (05/08/16 3:02 PM) AST [5-34 U/L] 34 U/L (05/08/16 3:02 PM) Alk Phos [40-150 51 U/L U/L] (05/08/16 3:02 PM) Bili Total [0.2-1.2 0.6 mg/dL mg/dL] (05/08/16 3:02 PM) 1Result Comment: Multiply eGFR results by 1.21 for race. 2Result Comment: Please note reference range change effective 04/20/2016. Immunizations Given and Recorded Vaccine Date Status Refusal Reason influenza virus vaccine, inactivated1 01/04/15 Recorded pneumococcal 13-valent conjugate vaccine2 01/04/15 Recorded pneumococcal 23-polyvalent vaccine3 01/24/11 Recorded 1Result Comment: [04/05/2015] RECEIVED AT [facility] 2Result Comment: [04/05/2015] RECEIVED AT [facility] 3Result Comment: [04/05/2015] RECEIVED AT [facility] Procedures Procedure Date Related Diagnosis Body Site Hernia repair 2012 Tonsillectomy Social History Social History Type Response Smoking Status Former smoker; Type: Cigarettes Assessment and Plan Extracted from: Title: D/D Author: Erika Conrad RN Date: 05/08/16 PT RECEIVED DEPOMEDROL 80MG IM & CELESTONE 6MG IM TODAY DURING [facility] RN
--- OUTSIDE RECORDS SUMMARY | 2016-07-05 02:16 | XMS REPORT ---
Author Author [facility]. Organization [facility] Address [address] [place] [address] Phone [phone] Summary purpose CCDA Sent to [facility] Chief Complaint and Reason for Visit No [...] visit. Vital signs Type Value Date Respirations 22 91-78-628830:00 Pulse 82 :45 O2 Saturation 97% 49-11-370227:45 Systolic Blood Press 121mm/HG 66-97-078063:45 Diastolic Blood Pres 75mm/HG 07-08-617948:45 Temperature (Fahr) 98.4Degrees 42-35-220469:45 Social history No Social History or smoking status observations were recorded for this visit. ( Unknown if ever smoked.) Treatment Plan No treatment plan text is available for this visit. Hospital discharge instructions No discharge instruction text is available for this visit.
--- OUTSIDE RECORDS SUMMARY | 2016-07-05 02:16 | XMS REPORT ---
Author Author [facility]. Organization [facility] Address [address] [place] [address] Phone [phone] Summary purpose CCDA Sent to [facility] Chief Complaint and Reason for Visit Admit Diagnosis 1 JUV RHEUM ARTHRITIS NOS Problem list No authorized problems tracked for continuity of care are available for this visit. Encounters No authorized problems tracked for encounter diagnoses are available for this visit. Medications No home medications recorded for this patient visit Allergies, adverse reactions, alerts No allergy information is available for this patient. Immunizations No immunizations recorded for this patient visit Relevant diagnostic tests and/or laboratory data RESULTS [facility] [id number]:50:00 Result Normal Range Units Sed Rate (ESR) 2 0-15 MM/hr. History of procedures Procedure Code Code Type Description Date Performed Performing Physician 27040 CPT-4 RBC SED RATE AUTOMATED 10-05-2014 CHERI LYNN Functional status No functional or [...]
--- OUTSIDE RECORDS SUMMARY | 2016-07-05 02:16 | XMS REPORT ---
Author Author [facility]. Organization [facility] Address [address] [place] [address] Phone [phone] Summary purpose CCDA Sent to [facility] Chief Complaint and Reason for Visit [...] tests and/or laboratory data RESULTS [facility] [id number]:31:00 Result Normal Range Units Sed Rate (ESR) 5 0-15 MM/hr. History of procedures No procedures recorded for [...]
--- OUTSIDE RECORDS SUMMARY | 2016-07-05 02:16 | XMS REPORT | Referral Summary ---
Author Author [facility] Organization [facility] Address Unknown Phone Unavailable Care Team Providers Care Center Medical Specialist Name Role Phone Cait Burgess Primary Care Physician [phone] Encounter Date(s): 12/13/15 - 12/13/15 [facility] [address] [place], [place] [address] Discharge Diagnosis: NSAID long-term use Discharge Diagnosis: Rheumatoid arthritis Discharge Diagnosis: Chronic bipolar disorder Discharge Diagnosis: Adult Still's disease Discharge Diagnosis: High risk medication use Discharge Disposition: 01-Home or Self Care Attending Physician: Christen Sotomayor MD Admitting Physician: Christen Sotomayor MD Referring Physician: Jazmin Burgess MD Vital Signs Most recent to 1 oldest [Reference Range]: Temperature Oral 36.8 degC [35.8-37.3 degC] (12/13/15 4:18 PM) Peripheral Pulse 87 bpm Rate [60-100 bpm] (12/13/15 4:18 PM) Blood Pressure 119/78 mmHg [90-140/60-90 mmHg] (12/13/15 4:18 PM) Problem List Condition Effective Dates Status [...] mL subcutaneous solution 100 mg, SubCutaneous, Daily, CALLED TO [facility] @ [phone] [facility] RN, # 56 Each, 2 Refill(s), called to pharmacy (Rx), 100 mg SubCutaneous Daily Start Date: 12/02/15 Status: Ordered fenofibrate 43 mg oral capsule [...] vaccine3 01/24/11 1Result Comment: [04/05/2015] RECEIVED AT [facility] 2Result Comment: [04/05/2015] RECEIVED AT [facility] IN [facility] 3Result Comment: [04/05/2015] RECEIVED AT [facility] IN [facility] Procedures Procedure Date Related Diagnosis Body Site Hernia repair 2012 Tonsillectomy Social History Social History Type Response Smoking Status Former smoker; Type: Cigarettes Assessment and Plan No data available for this section
[2016-07-05 02:35] VITALS: Ht 167.6 cm; Wt 107.5 kg
[2016-07-05] MEDS ORDERED: NORMAL SALINE 1,000 ML IV ONE (03:00)
[2016-07-05] MEDS ORDERED: ACETAMINOPHEN 500 MG TABLET PO ONE (03:00)
--- NOTE | 2016-07-05 03:08 | ERPDOC ---
Departure Disposition Decision Date: Jul 05, 2016 Disposition Decision Time: 04:51 Disposition: 01 DISCHARGED HOME, SELF-CARE Impression Impression Impression: Primary Impression: Still's disease Severity: Severe Condition: Improved Seen By: Physician only Referrals: CHERI LYNN MD (Family) Patient Instructions: Rheumatoid Arthritis (ED) Problems/Meds/Labs Reviewed?: Yes Medications reviewed and manag: Yes Additional Instructions: Prednisone 20 mg, take 3 tablets daily until you see Dr. Sotomayor. Call Dr. Sotomayor office this afternoon if they have not reached you by then. Restart your routine medications as soon as possible Follow up care ordered?: Yes Mental Status: Alert Scripts Prednisone (Prednisone) 20 Mg Tablet 60 MG PO DAILY, #12 TAB 0 Refills Prov: USMAN CAM MD 07/05/16 HPI - General Medical General Chief Complaint: Acute Medical Problem Stated Complaint: CHILLS,FEVER, RASH,VOMITING Time Seen by Provider: 02:13 Source: patient, family Exam Limitations: no limitations HPI - General Medical Initial Comments Pt took his last shot of Kineret day before yesterday and was unable to get his refill due to cost. Pt submitted a letter of need with the pharmacy and is awaiting a response. In the interim he has developed his typical flare sx of his variation of severe Rheumatoid arthritis with fever up to 103, sore throat, cough to the point of vomiting and chills. Pt did not contact his Medical Affairs Director Dr. Sotomayor because he knew he would just be told to go to ER. Occurred At: home Onset: Rapid Duration: 12-24 hrs Severity: moderate Associated Symptoms: cough, fever/chills, malaise, weakness, DENIES: chest pain , diaphoresis, headaches, loss of appetite, nausea/vomiting, rash, seizure, shortness of breath, syncope Hx of Similar Symptoms: Yes Allergies: Coded Allergies: abatacept (Verified Allergy, Unknown, 07/05/16) adalimumab (Verified Allergy, Unknown, 07/05/16) cephalexin (Verified Allergy, Unknown, 07/05/16) infliximab (Verified Allergy, Unknown, 07/05/16) Past History Patient Medical History Problem List Updates: Still's Disease Past Medical History Musculoskeletal: rheumatoid arthritis Psychological: bipolar, depression Vaccines Hx Influenza Vaccination: Yes (FALL 2010) Hx Pneumococcal Vaccination: Yes (FALL 2010) Hx Tetanus Diptheria: No Hx Tetanus, Diptheria, Pertuss: No Social History Smoking Status: Never smoker Does patient use chewing tobac: No Second Hand Exposure: No Substance Use Type: does not use Alcohol Intake: none Record Review Pertinent history updated: Yes Review of Systems Constitutional Constitutional: chills, fever, DENIES: appetite decrease, appetite increase, dizziness, weakness ENMT Ears: DENIES: pain Hearing: DENIES: hearing loss, tinnitus Balance: DENIES: vertigo Mouth/Throat: sore throat, DENIES: change in swallowing, change in voice, hoarsness, painful swallowing Cardiovascular Cardiac: DENIES: chest pain, dyspnea on exertion Rhythm/Rate: DENIES: irregular beat, palpitations, tachycardia Vascular: DENIES: pedal edema Pulmonary Respiratory: cough, sputum, DENIES: dyspnea, hyperventilation, pleuritic chest pain, pneumonia hx, tachypnea GI Upper Abdomen: vomiting, DENIES: dysphagia, heartburn/indigestion, nausea, pain Lower Abdomen: DENIES: blood in stool, constipation, diarrhea, pain General: DENIES: burning, dysuria, frequency, pain, urgency Musculoskeletal General: DENIES: cramps, joint pain, joint swelling, pain, weakness Integumentary Skin: DENIES: rash, sores Neurological General: DENIES: headache, numbness, tingling, vertigo, weakness Psychiatric Psychiatric: DENIES: anxiety, depression, nervousness Physical Exam General General Nourishment: well nourished, well developed, appears stated age General Body Habitus: well groomed Vitals and Pain First Documented Vital Signs Date Time Temp Pulse Resp B/P Pulse Ox O2 Delivery O2 Flow Rate FiO2 07/05/16 02:35 100.0 129 20 143/84 97 Room Air Weight: Kilograms: 107.500 Height (feet): 5 Height (inches): 6.00 Triage Pain Scale: RN VS reviewed by Provider: Yes Normal Exams: Head: Normocephalic w/o trauma Eyes: Pupils are PERRLA w/ EOMI, No scleral icterus, irritation, or foreign bodies noted ENMT: No facial trauma, nasal exudates, pharyngeal erythema, or exudates are noted Neck: Full range of motion, without adenopathy, JVD, bruits or thyromegaly Chest/Resp: Clear all petyt, with good airflow, and symmetry bilaterally CV: Regular rate and rhythm, without murmur or gallop, Pulses 2+ all extremities, capillary refill, <2 seconds all ext., no pedal edema noted Abdomen: Bowel sounds positive, soft, non-tender, non-distended, no hepatosplenomegaly, masses or bruits noted Lymphatic: No lymphadenopathy, or lymphedema noted Musculoskeletal: No tenderness, or deformity noted, good range of motion, all extremities Integumentary: No rashes, hives, or bruising noted, hair and nails, without abnormality Neurologic: Patient is alert, and oriented, cranial nerves, motor/sensory/ cerebellar, exams w/o gross deficits, to observation Psychiatric: Patient exhibits, appropriate attention, emotion and affect Progress Results/Orders Orders Procedure Category Date Status Time Methylprednisolone PHA 07/05/16 Complete Sod Succ (Solu-Medrol 03:00 Acetaminophen PHA 07/05/16 Complete (Tylenol Extra 03:00 Normal Saline (Normal PHA 07/05/16 Complete Saline Iv) 03:00 Cbc W/Auto LAB 07/05/16 Complete Diff-Reflex Manual Cmp - Comprehensive LAB 07/05/16 Complete Metabolic Lactate - Lactic Acid LAB 07/05/16 Complete Chest, Pa & Lateral RAD 07/05/16 Taken Strep A Antigen Screen LAB 07/05/16 Complete 02:51 Lactate - Lactic Acid LAB 07/05/16 Logged 07:21 Group A Strep Culture ALLEGRA 07/05/16 In Process 03:47 Lab Results Laboratory Tests Test 07/05/16 03:13 07/05/16 03:30 White Blood Count 18.3T/MM3 Red Blood Count 5.16M/MM3 Hemoglobin 13.2GM/DL Hematocrit 40.9% Mean Corpuscular Volume 79.3UM3 Mean Corpuscular Hemoglobin 25.6UUG Mean Corpuscular Hemoglobin Concent 32.3GM/DL RDW Standard Deviation 44.8FL Platelet Count 269T/MM3 Mean Platelet Volume 8.8UM3 Immature Granulocyte % (Auto) % Neutrophils (%) (Auto) % Lymphocytes (%) (Auto) % Monocytes (%) (Auto) % Eosinophils (%) (Auto) % Basophils (%) (Auto) % Absolute Immature Granulocyte (auto T/MM3 Absolute Neutrophils (auto) T/MM3 Absolute Lymphocytes (auto) T/MM3 Absolute Monocytes (auto) T/MM3 Absolute Eosinophils (auto) T/MM3 Absolute Basophils (auto) T/MM3 Neutrophils % (Manual) 80.0% Band Neutrophils % 10.0% Lymphocytes % (Manual) 7.0% Monocytes % (Manual) 3.0% Absolute Neutrophils (Manual) 14.6T/MM3 Band Neutrophils # 1.8T/MM3 Lymphocytes # (Manual) 1.3T/MM3 Monocytes # (Manual) 0.5T/MM3 Red Cell Morphology Comment Normal Turbidity < 20 Sodium Level 140MEQ/L Potassium Level 4.4MEQ/L Chloride Level 101MEQ/L Carbon Dioxide Level 25MEQ/L Anion Gap 14MEQ/L Blood Urea Nitrogen 20.0MG/DL Creatinine 1.2MG/DL Glomerular Filtration Rate Calc 67 BUN/Creatinine Ratio 17RATIO Glucose Level 146MG/DL Calculated Osmolality 275MOSM/KG Calcium Level 10.2MG/DL Total Bilirubin 1.30MG/DL Icterus Index < 2 Aspartate Amino Transf (AST/SGOT) 28U/L Alanine Aminotransferase (ALT/SGPT) 50U/L Alkaline Phosphatase 62U/L Total Protein 7.1G/DL Albumin 4.1G/DL Globulin 3.0G/DL Albumin/Globulin Ratio 1.4RATIO Plasma Lactate 1.8MMOL/L Chemistry Specimen Hemolysis < 15 Group A Streptococcus Screen Negative Medications Current ED Medications Methylprednisolone Sodium Succinate (Solu-Medrol) 125 mg O ONCE IV Last administered on 07/05/16 03:20; Start 07/05/16 at 03:00; Stop 07/05/16 at 03:01 ; Status DC Acetaminophen 1000 mg 1,000 mg O ONCE PO Last administered on 07/05/16 03:21 ; Start 07/05/16 at 03:00; Stop 07/05/16 at 03:01; Status DC Sodium Chloride (Normal Saline IV) 1,000 ml @ 0 mls/hr Q0M ONCE IV Last administered on 07/05/16 03:21; Start 07/05/16 at 03:00; Stop 07/05/16 at 03:01 ; Status DC Progress Progress Patient has normal blood pressure but pulse is elevated at 24. Patient does have elevated temperature at 100, but no true fever at this time. Patient given 1 L normal saline IV fluid bolus, Tylenol 1000 mg, and Solu- Medrol 125 mg IV - CBC - white blood cell elevated at 18, 10% bands CMP - normal Lactate - normal Chest x-ray - normal Strep screen - negative Dr. Christen Sotomayor paged multiple times through via [facility] folder gluer operator, no answer I was able to speak to Dr. Sotomayor partner. Patient states that all of these symptoms including the elevated white blood cell count are all very typical for his flare of disease. Patient started on prednisone 60 mg daily until he sees USMAN Prado MD Jul 05, 2016 03:08
[2016-07-05 03:20] LABS: HCT - HEMATOCRIT 40.9 % (41-53); HGB - HEMOGLOBIN 13.2 GM/DL (13.5-17.5); MEAN CORPUSCULAR HGB 25.6 UUG (26-34); MEAN CORPUSCULAR HGB CONC(MCHC 32.3 GM/DL (31-37); MEAN CORPUSCULAR VOLUME 79.3 UM3 (80-100); MEAN PLATELET VOLUME 8.8 UM3 (9.4-12.4); RED BLOOD COUNT 5.16 M/MM3 (4.50-5.90); WBC - WHITE BLOOD COUNT 18.3 T/MM3 (4.5-11.0)
--- NOTE | 2016-07-05 03:32 | NUR ---
IMAGING PT LEAVES WITH IMAGING STAFF AT THIS TIME.
[2016-07-05 03:34] LABS: LACTATE - LACTIC ACID 1.8 MMOL/L (0.6-2.2)
[2016-07-05 03:35] LABS: ALBUMIN 4.1 G/DL (3.5-5.0); ALBUMIN/GLOBULIN RATIO 1.4 RATIO (1.1-2.2); ALKALINE PHOSPHATASE 62 U/L (38-126); ALT (SGPT) 50 U/L (21-72); ANION GAP 14 MEQ/L (5-15); AST (SGOT) 28 U/L (17-59); BUN/CREATININE RATIO 17 RATIO (6-26); CALCIUM 10.2 MG/DL (8.4-10.2); CHLORIDE 101 MEQ/L (98-107); CO2 - CARBON DIOXIDE 25 MEQ/L (22-30); CREATININE 1.2 MG/DL (0.8-1.5); GLOMERULAR FILTRATION RATE 67; GLUCOSE 146 MG/DL (75-110); POTASSIUM 4.4 MEQ/L (3.6-5); SODIUM 140 MEQ/L (134-144); TOTAL PROTEIN 7.1 G/DL (6.3-8.2)
[2016-07-05 03:44] LABS: BAND NEUTROPHILS # 1.8 T/MM3; LYMPHOCYTES # (MANUAL) 1.3 T/MM3 (1-4.8); MONOCYTES # (MANUAL) 0.5 T/MM3 (0-0.8); NEUTROPHILS #(MANUAL)-ABSOLUTE 14.6 T/MM3 (1.8-7.7); TOTAL CELLS COUNTED 100 %
--- NOTE | 2016-07-05 03:44 | NUR ---
RETURN PT RETURNS TO ROOM.
--- OUTSIDE RECORDS SUMMARY | 2016-07-05 03:53 | XMS REPORT | Continuity of Care Document ---
Author Author [facility] Organization [facility] Address Unknown Phone Unavailable Allergies Active Description Code Type Severity Reaction Onset Reported/Identified Relationship to Patient Clinical Status Yes cephalexin 2716 Drug Allergy N/A N/A Confirmed or Verified Yes infliximab 7640 Drug Allergy N/A N/A Confirmed or Verified Yes sulindac 2386 Drug Allergy N/A N/A Confirmed or Verified Yes tofacitinib 33556 Drug Allergy N/A N/A Confirmed or Verified Yes Actemra NKMA Medium rash, dyspnea Yes Orencia NKMA Medium rash, itching Yes sulindac NKMA Moderate Hives 07/14/2013 Yes Clinoril NKMA N/A [id number] 03/09/2014 Yes inFLIXimab NKMA N/A hives, headache, [...] N/A 04/11/2015 Confirmed or Verified Yes Remicade 60581 Drug Allergy N/A N/A 04/11/2015 Yes Remicade 44881 Drug Allergy Severe Rash 10/24/2015 Yes Clinoril 9709 Drug Allergy N/A Hives 10/24/2015 Yes Keflex 6608 Drug Allergy N/A bruising 10/24/2015 Yes tofacitinib 59147 Drug Allergy N/A Rash 10/24/2015 Medications Problems Date Dx Coded Attending Type Code Diagnosis Diagnosed By 12/30/2012 LEAH RATLIFF, CHERI Rivas 714.30 JUV RHEUM ARTHRITIS NOS 10/05/2014 LEAH RATLIFF, CHERI Rivas 714.30 JUV RHEUM ARTHRITIS NOS 04/06/2015 CHERI LYNN MD M08.00 [facility] juvenile rheumatoid arthritis of unspecified site 04/15/2015 CHERI LYNN MD 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, [facility] 05/13/2015 CHERI LYNN MD 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, [facility] 10/21/2015 CHERI LYNN MD E78.4 Other hyperlipidemia 10/21/2015 CHERI LYNN MD F31.9 Bipolar disorder, unspecified 10/21/2015 CHERI LYNN MD 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, [facility] 10/28/2015 CHERI LYNN MD 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, [facility] Procedures Code [place] [address] METABOLIC PANEL TOTAL CA CHERI LYNN MD 12/30/2012 55428 ASSAY THYROID STIM HORMONE CHERI LYNN MD 12/30/2012 23815 RBC SED RATE, AUTOMATED CHERI LYNN MD 10/05/2014 41005 RBC SED RATE, AUTOMATED CHERI LYNN MD 04/06/2015 63853 THER/PROPH/DIAG INJ, IV PUSH CHERI LYNN MD 04/11/2015 J7050 NS SOLUTION 250 CC INFUSION CHERI LYNN MD 04/11/2015 13491 THER/PROPH/DIAG IV INF, LORETTAIT CHERI LYNN MD 04/12/2015 13975 THER/PROPH/DIAG INJ, IV PUSH CHERI LYNN MD 04/12/2015 J7050 NS SOLUTION 250 CC INFUSION CHERI LYNN MD 04/12/2015 28358 THER/PROPH/DIAG IV INF, INIT CHERI LYNN MD 04/13/2015 04842 THER/PROPH/DIAG INJ, IV PUSH CHERI LYNN MD 04/13/2015 J7050 NS SOLUTION 250 CC INFUSION CHERI LYNN MD 04/13/2015 04164 THER/PROPH/DIAG IV INF, INIT CHERI LYNN MD 04/14/2015 J7050 NS SOLUTION 250 CC INFUSION CHERI LYNN MD 04/14/2015 44620 THER/PROPH/DIAG IV INF, INSPENCER LYNN MD , CHERI R 04/15/2015 06642 THER/PROPH/DIAG INJ, IV PUSH LEAH RATLIFF , CHERI R 04/15/2015 J7050 NS SOLUTION 250 CC INFUSION LEAH RATLIFF, CHERI R 04/15/2015 70016 COMPREHEN METABOLIC PANEL LEAH RATLIFF, CHERI R 05/13/2015 60503 COMPLETE CBC, AUTOMATED LEAH RATLIFF, CHERI R 05/13/2015 49032 RBC SED RATE, AUTOMATED LEAH RATLIFF, CHERI R 10/21/2015 J7050 NS SOLUTION 250 CC INFUSION LEAH RATLIFF, CHERI R 10/24/2015 03698 THER/PROPH/DIAG IV INF, INSPENCER LYNN MD , CHERI R 10/25/2015 J7050 NS SOLUTION 250 CC INFUSION LEAH RATLIFF, CHERI R 10/25/2015 38921 THER/PROPH/DIAG IV INF, INSPENCER LYNN MD , CHERI R 10/26/2015 J7050 NS SOLUTION 250 CC INFUSION LEAH RATLIFF, CHERI R 10/26/2015 19614 THER/PROPH/DIAG IV INF, INSPENCER LYNN MD , CHERI R 10/27/2015 34236 THER/PROPH/DIAG INJ, IV PUSH LEAH RATLIFF , CHERI R 10/27/2015 J7050 NS SOLUTION 250 CC INFUSION LEAH RATLIFF, CHERI R 10/27/2015 75055 THER/PROPH/DIAG IV INF, MONY LYNN MD , [...] 32.5 G/DL 32.0-36.0 MCV 83.9 FL 80-94 [place] # 0.95 x10^3 0.0-0.8 [place] % 10.9 % 1.0-9.0 MPV 8.7 FL [...] Status Pt. Type Provider Facility Loc./Unit Complaint [id number] 03/26/2013 13:22:00 03/26/2013 23 :59:59 CLS Outpatient
[2016-07-05] MEDS ORDERED: OLAN5TAB25 PO (04:26)
[2016-07-05] MEDS ORDERED: FENO134C PO (04:29)
[2016-07-05] MEDS ORDERED: LISI10TA7 PO (04:29)
[2016-07-05 04:30] VITALS: TEMP 97.6
[2016-07-05] MEDS ORDERED: PRED20TA PO (04:58)
[2016-07-05 05:42] VITALS: BP 113/68; PULSE 107; RESP 20; O2SAT 92
--- NOTE | 2016-07-05 05:42 | NUR ---
DEPART PT IS DISCHARGED AT THIS TIME, INSTRUCTIONS ARE REVIEWED AND UNDERSTANDING IS VOICED. PT LEAVES AMBULATORY WITH FAMILY.
--- NOTE | 2016-07-05 07:55 | DI ---
INDICATION: ITS.REASON: fever, cough PROCEDURE: CHEST 2-VIEWS UPRIGHT (PA \T\ LAT) Encounter: Initial COMPARISON: None FINDINGS: The lungs are clear without evidence of focal abnormal airspace opacity. There is no pleural effusion or pneumothorax. The heart size, mediastinal contours and pulmonary vascularity are within normal limits. There is no significant skeletal abnormality. IMPRESSION: No acute cardiopulmonary disease. .
== END 2016-07-05 05:42 | disposition home or self-care (01) ==
LOC: ED 02:11
DX: 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, unspecified site (principal)
CPT/HCPCS: 71020; 80053; 83605; 85025; 87081; 87430; 96361; 96374; 99284; A9270; J2930; J7030